=== PATIENT | male | born 1950 | race Caucasian/White ===

== ENCOUNTER 2016-08-15 06:44 | Day surgery (SDC) | payer BC, OTHER ==
[2016-08-15] MEDS ORDERED: LIDOCAINE 2% (PRES FREE) 5 ML VIAL ONE (07:01)
[2016-08-15] MEDS ORDERED: PROPOFOL 20 ML IV ONE (07:01)
[2016-08-15] MEDS ORDERED: LACTATED RINGERS 1,000 ML ONE (07:05)
[2016-08-15] MEDS ORDERED: IV START KIT ONE (07:06)
[2016-08-15] MEDS ORDERED: LACTATED RINGERS 1,000 ML IV SCH (08:15)
== END 2016-08-15 08:40 | disposition home or self-care (01) ==
LOC: SDC 06:44
PROVIDERS: ATTEND Surgery
PROC: 0DJD8ZZ Inspection of Lower Intestinal Tract, Via Natural or Artificial Opening Endoscopic (ICD-10-PCS; principal; 2016-08-15)
DX: Z12.11 Encounter for screening for malignant neoplasm of colon (principal); K57.30 Diverticulosis of large intestine without perforation or abscess without bleeding; J44.9 Chronic obstructive pulmonary disease, unspecified; E07.9 Disorder of thyroid, unspecified; E78.5 Hyperlipidemia, unspecified; Z87.891 Personal history of nicotine dependence; Z88.5 Allergy status to narcotic agent
CPT/HCPCS: 45378; J7120